=== PATIENT | female | born 1990 ===

== ENCOUNTER → 2018-12-24 | Outpatient (REF) ==
--- NOTE | 2018-12-24 15:17 | REP ---
Clinical: Pain and disability. Technique: AP, lateral, coned-down views of the lumbosacral spine. Findings: Alignment and lordosis maintained. No acute fracture / compression injury or subluxation. No significant degenerative changes are appreciated. Impression: Normal age appropriate lumbosacral spine radiographs. Electronically Signed by Eran Goyal MD 12/24/2018 03:09 P
--- NOTE | 2018-12-24 15:18 | REP ---
Clinical: Right knee pain Technique: AP, lateral, bilateral oblique and sunrise views. Findings: The osseous structures and joint spaces are intact and normal. There is no evidence for acute fracture or dislocation. No joint effusion is appreciated. Surrounding soft tissues are unremarkable. No subcutaneous emphysema or radiodense foreign body. Impression: Normal examination. Electronically Signed by Eran Goyal MD 12/24/2018 03:09 P
== END ==
LOC: M SMT 14:30
PROVIDERS: ATTEND Internal Medicine
DX: M25.561 Pain in right knee (principal); M54.5 Low back pain